=== PATIENT | male | born 1945 | race Caucasian/White ===

== ENCOUNTER 2022-07-17 02:34 | Emergency (ER) | payer OTHER, BC ==
[2022-07-17 02:42] VITALS: RESP 18; BMI 22.6
[2022-07-17] MEDS ORDERED: OXYMETAZOLINE 0.05% NASAL SOLUTION 15 ML BOTTLE NS ONE (02:54)
[2022-07-17] MEDS ORDERED: VALSARTAN 40 MG TABLET PO ONE (03:36)
[2022-07-17 03:50] VITALS: BP 157/86; PULSE 88; TEMP 99.1
== END 2022-07-17 04:20 | disposition home or self-care (01) ==
LOC: JER 02:34
DX: R04.0 Epistaxis (principal)
CPT/HCPCS: 36415; 80053; 85025; 99283-25

== ENCOUNTER 2022-07-17 21:48 | Emergency (ER) | payer OTHER, BC ==
[2022-07-17 21:55] VITALS: PULSE 88; RESP 18; TEMP 98; BMI 22.6
[2022-07-17] MEDS ORDERED: OXYMETAZOLINE 0.05% NASAL SOLUTION 15 ML BOTTLE NS ONE (22:09)
[2022-07-17] MEDS ORDERED: amLODIPine BESYLATE 5 MG TABLET (FP) PO ONE (22:11)
[2022-07-17] MEDS ORDERED: amLODIPine BESYLATE 10 MG TABLET (FP) PO ONE (22:11)
[2022-07-17] MEDS ORDERED: TRANEXAMIC ACID 1000 MG/10 ML VIAL IVPUSH ONE (22:13)
[2022-07-17] MEDS ORDERED: TRANEXAMIC ACID 1000 MG/10 ML VIAL ONE (22:14)
[2022-07-17] MEDS ORDERED: amLODIPine BESYLATE 5 MG TABLET (FP) ONE (22:14)
[2022-07-17] MEDS ORDERED: SODIUM CHLORIDE 0.9% 500 ML INFUS.BAG IV ONE ×2 (22:33→23:13)
[2022-07-17 23:43] LABS: BASO % 0.8 % (0-2.0); EOS % 1.1 % (0-4.5); HEMATOCRIT 40.2 % (35.4-49); HEMOGLOBIN 13.6 GM/dL (11.7-16.9); MCH 31.8 pg (25.7-33.7); MCHC 33.9 g/dl (32.0-35.9); MEAN CELL VOLUME 93.8 fl (80-96); MEAN PLT VOLUME 6.5 fl (7.5-11.1); MONO % 10.7 % (3.8-10.2); NEUT % 65.4 % (42.8-82.8); PLATELET COUNT 314 10^3/uL (134-434); RBC 4.28 M/mm3 (4.00-5.60); RDW 13.6 % (11.9-15.9); WHITE BLOOD COUNT 12.1 K/mm3 (4.0-10.0)
[2022-07-17 23:58] LABS: CALCIUM 8.9 mg/dL (8.5-10.1)
[2022-07-18 00:02] LABS: CREATININE 0.9 mg/dL (0.55-1.3)
[2022-07-18 00:04] LABS: BILIRUBIN,TOTAL 0.8 mg/dL (0.2-1); TOT PROT 7.1 g/dl (6.4-8.2)
[2022-07-18 00:34] VITALS: BP 162/85
== END 2022-07-18 00:34 | disposition home or self-care (01) ==
LOC: JER 21:48
PROC: 3E033GC Introduction of Other Therapeutic Substance into Peripheral Vein, Percutaneous Approach (ICD-10-PCS; principal; 2022-07-17)
DX: R04.0 Epistaxis (principal)
CPT/HCPCS: 36415; 80053; 85025; 99284-25

== ENCOUNTER 2024-06-24 17:33 | Emergency (ER) | payer OTHER ==
[2024-06-24 18:02] VITALS: BP 167/85; PULSE 93; RESP 18; TEMP 98; BMI 20.9
[2024-06-24] MEDS ORDERED: ACETAMINOPHEN 500 MG TABLET (FP) ONE (18:07)
[2024-06-24] MEDS ORDERED: DIPHTH,PERTUSS(ACELL),TET 0.5 ML DISP.SYRIN IM ONE (18:08)
[2024-06-24] MEDS: DIPHTH,PERTUSS(ACELL),TET 0.5 ML DISP.SYRIN IM ONE (18:23)
[2024-06-24] MEDS: ACETAMINOPHEN 500 MG TABLET (FP) PO ONE (18:24)
[2024-06-24] MEDS ORDERED: LIDOCAINE HCL 2% (20ML MULTI-DOSE VIAL) ONE (19:23)
[2024-06-24] MEDS ORDERED: AMOX TR/POT CLAV 875MG/125MG TABLETS (FP) ONE (20:12)
[2024-06-24] MEDS: AMOX TR/POT CLAV 875MG/125MG TABLETS (FP) PO ONE (20:15)
== END 2024-06-24 20:30 | disposition home or self-care (01) ==
LOC: JER 17:33
PROC: 0HQ1XZZ Repair Face Skin, External Approach (ICD-10-PCS; principal; 2024-06-24)
DX: S02.32XA Fracture of orbital floor, left side, initial encounter for closed fracture (principal); S01.81XA Laceration without foreign body of other part of head, initial encounter; V00.838A Other accident with motorized mobility scooter, initial encounter
CPT/HCPCS: 12013; 70450-TC; 70486-TC; 72125-TC; 90471; 90715; 99284-25

== ENCOUNTER 2024-07-02 12:25 | Emergency (ER) | payer OTHER, BC ==
[2024-07-02 12:38] VITALS: BP 179/80; PULSE 72; TEMP 97.8; BMI 20.9
== END 2024-07-02 13:05 | disposition home or self-care (01) ==
LOC: JERFT 12:25
DX: Z48.02 Encounter for removal of sutures (principal)
CPT/HCPCS: 99281-25